=== PATIENT | male | born 1945 | race Caucasian/White ===

== ENCOUNTER 2016-05-23 10:42 | Emergency (ER) | payer MEDICARE, BC ==
[2016-05-23 11:04] VITALS: BP 162/113
[2016-05-23] MEDS ORDERED: cefTRIAXone 2 GM, Lidocaine 1% 4.2 ML IM ONE ×2 (11:57)
[2016-05-23 12:19] LABS: CHLORIDE,CL 103 mmol/L (98-107); SODIUM,NA 138 mmol/L (136-145)
--- NOTE | 2016-05-26 08:22 | ER ---
Date of Service: 05/23/2016 SUBJECTIVE: Gissel presents to the emergency room with cough and chest congestion that he has been experiencing for several days. He states his has similar symptoms. The patient states that he has been experiencing some fever and body aches as well. He states he is not experiencing any chest pain. No significant shortness of breath. He states that he has not gotten his influenza vaccine this year. PAST MEDICAL HISTORY: 1. Hypertension. 2. He is noncompliant. He does have a history of type 2 diabetes for which he currently is not taking any medications for. 3. Coronary artery disease. MEDICATIONS: Lisinopril and aspirin. ALLERGIES: Codeine REVIEW OF SYSTEMS: General: Positive for fever and chills. HEENT: No sore throat, rhinorrhea, congestion. Respiratory: No shortness of breath. Cardiac: Denies any substernal chest pain. No jaw, arm, neck, or back pain. No palpitations. Gastrointestinal: No nausea, vomiting, or diarrhea. No melena, hematochezia, or hematemesis. Genitourinary: Denies any dysuria. Musculoskeletal: Positive for myalgias and arthralgias. PHYSICAL EXAMINATION: Vital Signs: Blood pressure 162/113, heart rate was 139, temperature is 38.4 was rechecked after approximately 2 hours. General: This is a 71-year-old male patient, who is in no acute distress. Skin: Warm, pink, and dry. HEENT. Head is normocephalic and atraumatic. Eyes, PERRLA. Extraocular intact. Mouth, oral mucosa is moist. No erythema or exudate noted in the hypopharynx. Neck: Supple without masses. There is no lymphadenopathy. Lungs: Diminished in the mid lung [place]. Heart: Regular rate and rhythm. Abdomen: Soft and nontender. There is no hepatosplenomegaly or masses noted. Extremities: Without edema. Influenza A and B were obtained. The patient was positive for influenza A. LABORATORY DATA: Blood cultures x2 were obtained and were pending. CBC was obtained, was all noted to be within normal limits. Comprehensive metabolic panel was obtained. There was no evidence of any abnormality with the exception of an elevated nonfasting blood glucose at 120 and a mildly elevated C-reactive protein at 3.2. PA and lateral chest x-ray was obtained. The patient did have evidence of what appeared to be right lower lobe infiltrate. ASSESSMENT: 1. Community-acquired pneumonia. 2. Influenza B. PLAN: The patient will be discharged. Tylenol and ibuprofen for discomfort. Drink plenty of fluids. The patient was started on Tamiflu 75 mg twice daily 4 to 5 days. Prednisone 40 mg daily for 5 days. Also started him on azithromycin as well. Drink plenty of fluids. Follow up in the clinic in 2 weeks. MWK: 05/25/2016 06:05:52 MODL: 05/25/2016 10:48:46 /[id number]
== END 2016-05-23 12:48 | disposition home or self-care (01) ==
LOC: VM.ED 10:42
DX: J18.9 Pneumonia, unspecified organism (principal); J10.1 Influenza due to other identified influenza virus with other respiratory manifestations; I10 Essential (primary) hypertension; I25.10 Atherosclerotic heart disease of native coronary artery without angina pectoris
CPT/HCPCS: 36415; 71020; 80053; 83605; 85025; 86140; 87040; 87804; 96372; 99284; J0696; 99283-GF

== ENCOUNTER 2019-03-02 09:43 | Emergency (ER) | payer MEDICARE, BC ==
[2019-03-02] MEDS ORDERED: Sodium Chloride 0.9% 10 ML Syringe FLUSH PRN (10:21)
--- NOTE | 2019-03-02 11:16 | CR ---
[id number] RAD/RAD Chest PA or AP 1V EXAM: RAD Chest PA or AP 1V INDICATION: CHEST PAIN. COMPARISON: 2016. DISCUSSION: Cardiomediastinal silhouette is unchanged from the prior examination. No infiltrate, effusion, pneumothorax, or edema. IMPRESSION: No acute findings or significant change from prior examination. Lenin Boone MD 03/02/19 1115 Thank you for allowing us to participate in the care of your patient.
[2019-03-02 11:20] LABS: CHLORIDE,CL 105 mmol/L (98-107); SODIUM,NA 139 mmol/L (136-145)
[2019-03-02 11:26] LABS: ANION GAP 14.9 mmol/L (10-20)
--- NOTE | 2019-03-02 20:15 | EDM.PDOC ---
ED HPI GENERAL MEDICAL PROBLEM - General Chief Complaint: Respiratory Problem Stated Complaint: Cough Time Seen by Provider: 03/02/19 10:15 Source of Information: Reports: Patient History Limitations: Reports: No Limitations - History of Present Illness INITIAL COMMENTS - FREE TEXT/NARRATIVE: Pt. presents to ER with complaints of cough and chest congestion. He states that he has been sick for several days. He states that he was unable to get into the clinic today. Pt. states that he is mildly dyspneic and he is experiencing pleuritic chest pain with a respirophasic component. Denies any increased peripheral edema. He states that he has a cough that is productive of yellowish sputum. Pt. denies any nausea or vomiting. He denies any myalgias, arthralgias, or significant increase in fatigue. Onset: Today Onset Date: 03/02/19 Location: Reports: Chest, Generalized - Related Data Allergies Allergy/AdvReac Type Severity Reaction Status Date / Time codeine Allergy Intermediate Bradycardia Verified 03/02/19 13:04 aspirin AdvReac Intermediate Stomach Verified 03/02/19 13:05 Upset Penicillins AdvReac Intermediate Stomach Verified 03/02/19 13:05 Upset Home Meds: Home Meds Aspirin 81 mg PO DAILY 05/23/16 [History] Magnesium Oxide [Magnesium] 500 mg PO DAILY 05/12/17 [History] Furosemide [Lasix] 20 mg PO DAILY PRN 07/08/17 [History] lisinopriL [Prinivil] 20 mg PO DAILY 07/08/17 [History] atorvaSTATin Calcium [Atorvastatin Calcium] 80 mg PO BEDTIME 07/14/17 [History] carvediloL [Coreg] 6.25 mg PO BID 08/05/17 [History] Clopidogrel [Plavix] 75 mg PO DAILY 03/02/19 [History] metFORMIN [Glucophage] 500 mg PO DAILY 03/02/19 [History] Past Medical History Cardiovascular History: Reports: CAD, High Cholesterol, Hypertension, Other ( See Below) Other Cardiovascular History: Ischemic cardiomyopathy. 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) Respiratory History: Reports: Pneumonia, Recurrent Musculoskeletal History: Reports: Other (See Below) Other Musculoskeletal History: Unspecified closed fracture of ankle Endocrine/Metabolic History: Reports: Diabetes, Type II, Other (See Below) Other Endocrine/Metabolic History: Pure Hyperglyceridemia - Past Surgical History Cardiovascular Surgical History: Reports: Coronary Artery Stent Social & Family History - Tobacco Use Smoking Status *Q: Current Every Day Smoker Years of Tobacco use: 40 Packs/Tins Daily: 1 - Recreational Drug Use Recreational Drug Use: No ED ROS GENERAL - Review of Systems Review Of Systems: See Below Constitutional: Reports: No Symptoms HEENT: Reports: No Symptoms Respiratory: Reports: Pleuritic Chest Pain, Cough, Sputum Cardiovascular: Reports: No Symptoms Endocrine: Reports: No Symptoms GI/Abdominal: Reports: No Symptoms : Reports: No Symptoms Musculoskeletal: Reports: No Symptoms Skin: Reports: No Symptoms Neurological: Reports: No Symptoms Psychiatric: Reports: No Symptoms Hematologic/Lymphatic: Reports: No Symptoms Immunologic: Reports: No Symptoms ED EXAM, GENERAL - Physical Exam Exam: See Below Exam Limited By: No Limitations General Appearance: Alert, WD/WN, No Apparent Distress Eye Exam: Bilateral Eye: EOMI Nose: Normal Inspection, Normal Mucosa, No Blood Throat/Mouth: Normal Inspection, Normal Lips, Normal Teeth, Normal Gums, Normal Oropharynx, Normal Voice, No Airway Compromise Head: Atraumatic, Normocephalic Neck: Normal Inspection, Supple, Non-Tender, Full Range of Motion Respiratory/Chest: No Respiratory Distress, No Accessory Muscle Use, Decreased Breath Sounds Cardiovascular: Normal Peripheral Pulses, Regular Rate, Rhythm, No Edema, No Gallop, No JVD, No Murmur, No Rub Peripheral Pulses: 4+: Radial (L) GI/Abdominal: Normal Bowel Sounds, Soft, Non-Tender, No Organomegaly, No Distention, No Abnormal Bruit, No Mass, Pelvis Stable (Male) Exam: Deferred Rectal (Males) Exam: Deferred Back Exam: Normal Inspection, Full Range of Motion Extremities: Normal Range of Motion, Non-Tender, No Pedal Edema, Normal Capillary Refill Neurological: Alert, Oriented, CN II-XII Intact, Normal Cognition, Normal Gait, Normal Reflexes, No Motor/Sensory Deficits Psychiatric: Normal Affect, Normal Mood Skin Exam: Warm, Dry, Intact, Normal Color, No Rash Lymphatic: No Adenopathy Course - Vital Signs Last Recorded V/S: Last Vital Signs Temp 38.5 C H 03/02/19 10:21 Pulse 76 03/02/19 10:21 Resp 18 03/02/19 10:21 BP 100/66 03/02/19 10:21 Pulse Ox 93 L 03/02/19 10:21 - Orders/Labs/Meds Orders: Active Orders 24 hr Category Date Time Status EKG Documentation Completion [RC] STAT Care 03/02/19 10:21 Active CULTURE BLOOD [BC] Stat Lab 03/02/19 10:40 Received CULTURE BLOOD [BC] Stat Lab 03/02/19 10:45 Received Blood Culture x2 Reflex Set [OM.PC] Stat Oth 03/02/19 10:22 Ordered Peripheral IV Insertion Adult [OM.PC] Routine Oth 03/02/19 10:22 Ordered Labs: Laboratory Tests 03/02/19 03/02/19 03/02/19 Range/Units 10:40 10:40 10:40 WBC 6.2 (4.0-10.0) x10^3/uL RBC 4.75 (4.5-6.0) x10^6/uL Hgb 14.4 D (14.0-18.0) g/dL Hct 43.0 (40.0-52.0) % MCV 90.5 (78.0-93.0) fL MCH 30.3 (26.0-32.0) pg MCHC 33.5 (32.0-36.0) g/dL RDW Coeff of Evan 13.3 (10.0-15.0) % Plt Count 171 (130-400) x10^3/uL Neut % (Auto) 72.2 (50.0-80.0) % Lymph % (Auto) 9.1 L (25.0-50.0) % Bureau % (Auto) 15.2 H (2.0-11.0) % Eos % (Auto) 3.2 (0.0-4.0) % Baso % (Auto) 0.3 (0.2-1.2) % PT 10.7 (10.0-12.8) SEC INR 0.9 L (2.0-3.5) Sodium 139 (136-145) mmol/L Potassium 4.9 (3.5-5.1) mmol/L Chloride 105 (98-107) mmol/L Carbon Dioxide 24 (21-32) mmol/L Anion Gap 14.9 (10-20) mmol/L BUN 13 (7-18) mg/dL Creatinine 1.0 (0.70-1.30) mg/dL Est Cr Clr Drug Dosing 68.94 mL/min Estimated GFR (MDRD) > 60 Glucose 106 (74-106) mg/dL Lactic Acid (0.4-2.0) mmol/L Calcium 8.6 (8.5-10.1) mg/dL Corrected Calcium 9.32 (8.5-10.1) mg/dL Total Bilirubin 1.2 H (0.2-1.0) mg/dL AST 34 (15-37) U/L ALT 39 (16-63) U/L Alkaline Phosphatase 70 (46-116) U/L Troponin I 0.019 (<=0.056) ng/mL C-Reactive Protein 1.2 H (<=0.9) mg/dL Total Protein 6.2 L (6.4-8.2) g/dL Albumin 3.1 L (3.4-5.0) g/dL Globulin 3.1 Albumin/Globulin Ratio 1.00 // Range/Units 10:40 WBC (4.0-10.0) x10^3/uL RBC (4.5-6.0) x10^6/uL Hgb (14.0-18.0) g/dL Hct (40.0-52.0) % MCV (78.0-93.0) fL MCH (26.0-32.0) pg MCHC (32.0-36.0) g/dL RDW Coeff of Evan (10.0-15.0) % Plt Count (130-400) x10^3/uL Neut % (Auto) (50.0-80.0) % Lymph % (Auto) (25.0-50.0) % Bureau % (Auto) (2.0-11.0) % Eos % (Auto) (0.0-4.0) % Baso % (Auto) (0.2-1.2) % PT (10.0-12.8) SEC INR (2.0-3.5) Sodium (136-145) mmol/L Potassium (3.5-5.1) mmol/L Chloride (98-107) mmol/L Carbon Dioxide (21-32) mmol/L Anion Gap (10-20) mmol/L BUN (7-18) mg/dL Creatinine (0.70-1.30) mg/dL Est Cr Clr Drug Dosing mL/min Estimated GFR (MDRD) Glucose (74-106) mg/dL Lactic Acid 0.8 (0.4-2.0) mmol/L Calcium (8.5-10.1) mg/dL Corrected Calcium (8.5-10.1) mg/dL Total Bilirubin (0.2-1.0) mg/dL AST (15-37) U/L ALT (16-63) U/L Alkaline Phosphatase (46-116) U/L Troponin I (<=0.056) ng/mL C-Reactive Protein (<=0.9) mg/dL Total Protein (6.4-8.2) g/dL Albumin (3.4-5.0) g/dL Globulin Albumin/Globulin Ratio Meds: Medications Discontinued Medications Generic Name Dose Route Start Last Admin Trade Name Freq PRN Reason Stop Dose Admin Sodium Chloride 10 ml 03/02/19 10:21 Saline Flush FLUSH ASDIRECTED PRN Keep Vein Open - Radiology Interpretation Free Text/Narrative:: Chest x-ray negative for acute pathology Departure - Departure Time of Disposition: 12:10 Disposition: Home, Self-Care 01 Clinical Impression: Bronchitis - Discharge Information Instructions: Acute Bronchitis, Adult, [id number], Doxycycline tablets or capsules, Probiotics Referrals: Maria Eugenia Jack DO [Primary Care Provider] - Forms: ED Department Discharge Additional Instructions: Doxycycline 100mg 1 tab twice daily for 10 days Drink plenty of fluids Tylenol and ibuprofen as needed for fever Sepsis Event Note - Evaluation Sepsis Screening Result: No Definite Risk - Focused Exam Vital Signs: Vital Signs Temp Pulse Resp BP Pulse Ox 03/02/19 10:21 38.5 C H 76 18 100/66 93 L Date Exam was Performed: 03/02/19 Time Exam was Performed: 20:10 - My Orders Last 24 Hours: My Active Orders 03/02/19 10:21 EKG Documentation Completion [RC] STAT 03/02/19 10:22 Blood Culture x2 Reflex Set [OM.PC] Stat Peripheral IV Insertion Adult [OM.PC] Routine 03/02/19 10:40 CULTURE BLOOD [BC] Stat 03/02/19 10:45 CULTURE BLOOD [BC] Stat - Assessment/Plan Last 24 Hours: My Active Orders 03/02/19 10:21 EKG Documentation Completion [RC] STAT 03/02/19 10:22 Blood Culture x2 Reflex Set [OM.PC] Stat Peripheral IV Insertion Adult [OM.PC] Routine 03/02/19 10:40 CULTURE BLOOD [BC] Stat 03/02/19 10:45 CULTURE BLOOD [BC] Stat Plan: Doxycycline 100mg 1 tab twice daily for 10 days Drink plenty of fluids Tylenol and ibuprofen as needed for fever
== END 2019-03-02 11:42 | disposition home or self-care (01) ==
LOC: VM.ED 09:43
DX: J40 Bronchitis, not specified as acute or chronic (principal); I10 Essential (primary) hypertension; E11.9 Type 2 diabetes mellitus without complications; I25.10 Atherosclerotic heart disease of native coronary artery without angina pectoris; E78.00 Pure hypercholesterolemia, unspecified; F17.210 Nicotine dependence, cigarettes, uncomplicated; Z88.5 Allergy status to narcotic agent; Z88.0 Allergy status to penicillin; Z88.6 Allergy status to analgesic agent; Z79.82 Long term (current) use of aspirin; Z79.899 Other long term (current) drug therapy; Z79.84 Long term (current) use of oral hypoglycemic drugs; Z79.02 Long term (current) use of antithrombotics/antiplatelets; Z88.8 Allergy status to other drugs, medicaments and biological substances
CPT/HCPCS: 36415; 71045; 80053; 83605; 84484; 85025; 85610; 86140; 87040; 87804; 87804-59; 93005; 99283-GF; 99284-25